=== PATIENT | female | born 1975 | race Two or more races ===

== ENCOUNTER 2023-08-08 14:37 | Emergency (ER) | payer MEDICAID, OTHER ==
[~2023-08-08] VITALS: Ht 165.1 cm; Wt 81.8 kg
[2023-08-08 14:50] VITALS: BP 174/66; PULSE 82; RESP 14; O2SAT 99
== END 2023-08-08 21:20 | disposition left against medical advice (07) ==
LOC: EDBD 14:37 → EDUNIT# 14:37 → ER 14:37
DX: R42 Dizziness and giddiness (principal); R11.2 Nausea with vomiting, unspecified; Z53.21 Procedure and treatment not carried out due to patient leaving prior to being seen by health care provider
CPT/HCPCS: 93005